=== PATIENT | female | born 1970 | race Caucasian/White ===

== ENCOUNTER 2017-12-20 12:09 | Emergency (ER) | payer BC ==
--- NOTE | 2017-12-20 12:33 | UC ---
Complaint Female HPI - HPI Summary HPI Summary: 47 yo female presents with UTI symptoms. She tells me that this morning she developed frequency urination, burning, and noticed blood in her urine. Says that she gets UTIs once or twice a year and usually has blood in her urine like this. Has not taken anything OTC. Denies fever, chills, abdominal pain, n/v/d/c , or flank pain. - History Of Current Complaint Stated Complaint: URINARY COMPLAINT Time Seen by Provider: 12/20/17 12:33 Hx Obtained From: Patient Onset/Duration: Sudden Onset Timing: Constant Severity Initially: Moderate Severity Currently: Severe Pain Intensity: 9 Pain Scale Used: 0-10 Numeric - Allergies/Home Medications Allergies/Adverse Reactions: Allergies Allergy/AdvReac Type Severity Reaction Status Date / Time No Known Allergies Allergy Verified 12/20/17 12:34 PMH/Surg Hx/FS Hx/Imm Hx - Additional Past Medical History Additional PMH: None - Surgical History Surgical History: None - Family History Known Family History: Positive: None - Social History Occupation: Employed Full-time Lives: With Family Alcohol Use: None Substance Use Type: None Smoking Status (MU): Never Smoked Tobacco - Immunization History Most Recent Influenza Vaccination: 03/29/14 Most Recent Tetanus Shot: 06/05/14 Most Recent Pneumonia Vaccination: none Review of Systems Constitutional: Negative Skin: Negative Respiratory: Negative Cardiovascular: Negative Gastrointestinal: Negative Genitourinary: Dysuria, Hematuria, Frequency Neurovascular: Negative Neurological: Negative Psychological: Negative All Other Systems Reviewed And Are Negative: Yes Physical Exam - Summary Physical Exam Summary: GENERAL: NAD. WDWN. No pain distress. SKIN: No rashes, sores, lesions, or open wounds. NECK: Supple. Nontender. No lymphadenopathy. CHEST: CTAB. No r/r/w. No accessory muscle use. Breathing comfortably and in no distress. CV: RRR. Without m/r/g. Pulses intact. Brisk cap refill. ABDOMEN: Soft. NTTP. No distention or guarding. No organomegaly. No CVA tenderness. Bowel sounds present NEURO: Alert. CN II-XII grossly intact. PSYCH: Age appropriate behavior. Triage Information Reviewed: Yes Vital Signs: Laboratory Tests 12/20/17 12:51 POC Urine Color Red A POC Urine Clarity Cloudy POC Urine pH 7.0 POC Ur Specif [place] 1.015 POC Urine Protein 3+ A POC Ur Glucose (UA) Negative POC Urine Ketones Negative POC Urine Blood 3+ A POC Urine Nitrite Positive A POC Urine Bilirubin 1+ A POC Urine Urobilinogen 0.2 POC U Leukocyte Esteras 1+ A Vital Signs: Temp Pulse Resp BP Pulse Ox 98.2 F 74 16 124/68 99 12/20/17 12:30 12/20/17 12:30 12/20/17 12:30 12/20/17 12:30 12/20/17 12:30 Vital Signs Reviewed: Yes Complaint Female Dx - Course Course Of Treatment: UTI with signs of infection. Rx for cipro and pyridium. Urine culture sent. - Differential Dx/Diagnosis Provider Diagnoses: UTI Discharge - Sign-Out/Discharge Documenting (check all that apply): Patient Departure - Discharge Plan Condition: Stable Disposition: HOME Prescriptions: Ciprofloxacin TAB* [Cipro 250 MG Tab*] 250 mg PO BID #10 tab Phenazopyridine 200 mg (NF) [Pyridium 200 MG tab *] 200 mg PO TID #6 tab Patient Education Materials: Urinary Tract Infection in Women (ED) Referrals: Kerry Munguia MD [Primary Care Provider] - Additional Instructions: If you develop a fever, shortness of breath, chest pain, new or worsening symptoms - please call your PCP or go to the ED. - Billing Disposition and Condition Condition: STABLE Disposition: Home
[2017-12-20 12:34] VITALS: BP 124/68
== END 2017-12-20 13:21 | disposition home or self-care (01) ==
LOC: UCEAST 12:09
DX: N39.0 Urinary tract infection, site not specified (principal)
CPT/HCPCS: 81003; 87077; 87086; 87186; 99212; G0463

== ENCOUNTER 2023-06-09 06:07 | Inpatient (IN) ==
[~2023-06-09 06:07] MED LIST: Buffered Lidocaine 1% SYRIN 1 ml INTRADERM ONE; Lactated Ringers 1000 ml BAG 1,000 ML IV SCH
[2023-06-09] MEDS ORDERED: Bupivacaine 0.5% 50 ML MDV VIAL ONE (06:32)
[2023-06-09] MEDS ORDERED: ISOSULFAN BLUE 1% 5 ML VIAL 10 MG/ML SUBCUT ONE (06:32)
[2023-06-09] MEDS ORDERED: ceFAZolin 2 GM in NS PREMIX 2 GM/100 ML BAG IVPB ONE (06:33)
[2023-06-09] MEDS ORDERED: Heparin 5000 UNITS/ML 1 mL VIAL ONE (06:33)
[2023-06-09] MEDS ORDERED: fentaNYL 100 mcg/2 ml 50 MCG/ML VIAL IV ONE (07:03)
[2023-06-09] MEDS ORDERED: Rocuronium 50 mg VIAL 10 mg/ml 5 ml VIAL (50 mg) IV ONE ×2 (07:04→08:37)
[2023-06-09] MEDS ORDERED: Midazolam 2 mg/2 ml VIAL 1 mg/ml 2 ml VIAL (2 mg) IV SLOW PU ONE (07:08)
[2023-06-09] MEDS ORDERED: HYDROmorphone 0.5 MG/0.5 ML SYRINGE IV ONE ×3 (07:17→11:17)
[2023-06-09] MEDS ORDERED: Scopolamine 1 mg/72hr PATCH ONE (07:40)
[2023-06-09] MEDS ORDERED: Ondansetron 4 mg VIAL 2 MG/ML 2 ml VIAL IV PRN (08:48)
[2023-06-09] MEDS ORDERED: Scopolamine 1 mg/72hr PATCH TRANSDERM PRN (08:48)
[2023-06-09] MEDS ORDERED: Naloxone 0.4 mg VIAL 0.4 mg/ml 1 ml VIAL IV PRN (08:48)
[2023-06-09] MEDS ORDERED: fentaNYL 100 mcg/2 ml 50 MCG/ML VIAL IV PRN (08:48)
[2023-06-09] MEDS ORDERED: ceFAZolin VIAL VIAL IVPB ONE (10:54)
[2023-06-09] MEDS ORDERED: Morphine 2 MG/ML SYRINGE IV PRN (13:07)
[2023-06-09] MEDS ORDERED: Benzocaine/Menthol LOZ PO PRN (13:11)
[2023-06-09 15:12] LABS: Rapid COVID-19 Molecular Undetected (Undetected)
[2023-06-09] MEDS: ceFAZolin 2 GM in NS PREMIX 2 GM/100 ML BAG IVPB SCH (16:37)
[2023-06-09] MEDS: Heparin 5000 UNITS/ML 1 mL VIAL SUBCUT SCH ×2 (17:02→22:45)
[2023-06-09] MEDS: HYDROcodone/ACETAMIN 5/325 mg TAB PO PRN (17:24)
[2023-06-09] MEDS ORDERED: NS 0.9% 500 ml BAG 500 ML IV SCH (21:00)
[2023-06-10] MEDS: ceFAZolin 2 GM in NS PREMIX 2 GM/100 ML BAG IVPB SCH ×4 (00:26→21:29)
[2023-06-10] MEDS: HYDROcodone/ACETAMIN 5/325 mg TAB PO PRN ×4 (01:47→21:31)
[2023-06-10] MEDS: Heparin 5000 UNITS/ML 1 mL VIAL SUBCUT SCH ×3 (06:24→21:31)
[2023-06-11] MEDS: ceFAZolin 2 GM in NS PREMIX 2 GM/100 ML BAG IVPB SCH (06:06)
[2023-06-11] MEDS: HYDROcodone/ACETAMIN 5/325 mg TAB PO PRN (06:08)
[2023-06-11] MEDS: Heparin 5000 UNITS/ML 1 mL VIAL SUBCUT SCH (06:10)
[2023-06-11 10:12] VITALS: BP 105/72
== END 2023-06-11 12:20 | disposition home or self-care (01) | DRG 362 ==
LOC: AA 06:07 → SSU 12:58
PROVIDERS: ADMIT Student in an Organized Health Care Education/Training Program; ATTEND Student in an Organized Health Care Education/Training Program